=== PATIENT | female | born 1970 | race Caucasian/White ===

== ENCOUNTER 2025-03-01 08:19 | Emergency (ER) | payer BC, SELFPAY ==
--- OUTSIDE RECORDS SUMMARY | 2025-03-01 08:22 | XMS_ITS | Clinical Summary ---
Author Organization [facility] Address [address] [place] [id number] Care Team Providers Care Epic Prelude Analyst Name Role Phone Sergio Juarez Primary Care Provider [phone] Allergies Active Allergy Reactions Criticality Noted Date Comments Adhesive Tape Rash Low 10/20/2014 Redness, welts Mold 03/12/2011 CONGESTION AND SINUS INFECTIONS Nickel Blisters 10/20/2014 GUMS AROUND METAL OF CROWN RED AND RAW Penicillins Rash Low 08/21/2005 Medications diphenhydrAMINE (BENADRYL) 25 MG tablet Take 1-2 tablets (25-50 mg) by mouth every 6 hours as needed for allergies 30 tablet 7 Active finasteride (PROSCAR) 5 MG tablet 2 mg every 24 hours 9 Active cyclobenzaprine (FLEXERIL) 10 MG tablet Take 10 mg by mouth At Bedtime 0 Active Active Problems Problem Noted Date Diagnosed Date Aftercare following surgery 10/20/2014 Pelvic pain 10/17/2014 Encounter for sterilization 10/17/2014 Overview (08/24/2015): Problem list name updated by automated process. Provider to review Resolved Problems Problem Noted Date Diagnosed Date Resolved Date Lumbago 12/14/2008 04/18/2009 Lumbago 06/28/2007 08/17/2007 state, incidental 06/28/2007 0 04/18/2009 Social History Tobacco Use Types Packs/Day Years Used Date Smoking Tobacco: Never Smokeless Tobacco: Never Alcohol Use Standard Drinks/Week Comments Yes 0 (1 standard drink = 0.6 oz pur e alcohol) RARELY Comments No Sex and Gender Information Value Date Recorded Sex Assigned at Not on file Legal Sex Female 4:23 AM [employer] Gender Identity Not on file Sexual Orientation Not on file Last Filed Vital Signs Vital Sign Reading Time Taken Comments Blood Pressure 138/84 08/28/2020 1:23 PM CDT Pulse 77 08/28/2020 1:23 PM CDT Temperature 37.1 C (98.7 F) 08/28/2020 1:23 PM CDT Respiratory Rate 18 08/28/2020 1:23 PM CDT Oxygen Saturation 98% 08/28/2020 1:23 PM CDT Inhaled Oxygen Concentration - - Weight 110.9 kg (244 lb 8 oz) 08/28/2020 1:23 PM CDT Height 166.4 cm (5' 5.5) 08/28/2020 1:23 PM CDT Body Mass Index 40.07 08/28/2020 1:23 PM CDT Plan of Treatment Not on file Insurance [facility] Advance Directives For more information, please contact: [phone] * Full Code (Latest Code Status on File) Date Activated Date Inactivated Comments 10/20/2014 12:32 PM 10/21/2014 2:56 PM Care Teams Epic Prelude Analyst Relationship Specialty Start Date End Date Sergio Juarez [address] [address] PCP - General Family Practice 10/20/14
--- OUTSIDE RECORDS SUMMARY | 2025-03-01 08:22 | XMS_ITS | Data Portability ---
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 Instructed in scapular work. Reviewed program, and adjusted frequency to accomodate her busy schedule. 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 If symptom reduction is maintained, will decrease to PRN. Will recheck Jaw Functional Limitatrion Scale next week. csather Not available 10/19/2019 09:04:21 10/27/2019 10/27/2019 Improvement in this session; jaw opening increased, clicking decreased, and was abolished by the end of the session, with jaw opening to 44, which feels normal to her. Neck relaxes. She continues with IO massage and other techniques as time permits. Short term goals; 3 weeks Client to be able to bite down with 50% less pain than at evaluation Client to improve cervical ROM to Within Normal Limits Improve patient awareness of muscle guarding habits to decrease pain by 50% rice cleaning machine tender goals-6 weeks Client to not have jaw pain upon awakening in AM Client to demonstrate independence in maintaining precautions to prevent TMJ pain Client to present with at least 75% less crepitis Client to open jaw to at least 40 mm without pain, deviation or crepitis Client to have pain-free chewing with moderately hard diet 75% of the time Client to report pain level is reduced at least 75% as evidenced by functional limitation scale PLAN: Client is to be seen 1-2x/week for 4-8 weeks for instruction in jaw and neck exercises, postural exercises and body mechanics instructions, including better sleeping position, self-soft tissue mobilization avoidance of precipitating parafunctional activities, . csather Not available 10/27/2019 18:02:08 11/04/2019 11/04/2019 Patient was seen today for follow-up and insertion of a maxillary stabilization intraoral appliance. Diagnosis and contributing factors were reviewed. Questions were answered. Self-management and home exercise techniques were reviewed. Today the intraoral appliance was fit to patient comfort. Specifically, adjustments were made to balance appliance occlusion. Instructions on proper use and care were discussed/reviewed both written and verbally. I suggested that (s)he uses the appliance as a retraining tool to aid in relaxing their jaw muscles - put it in 20-30 minutes before bed time, keeping their jaw in a relaxed balanced position, simultaneously applying a heat compress on the jaw. Potential side effects were reviewed. The patient was advised to discontinue oral appliance use should they experience untoward side effects or be unable to return for follow-up care. The patient was advised to return in 3-4 weeks to reassess their progress and continue their treatment plan as previously outlined. In addition to oral appliance insertion today we review home self-care strategies as previously discussed. We discussed additional treatment options including continuing rehabilitative treatment with physical therapy. Today greater than 50% of the 25 minute visit was spent counseling and coordinating care. This may have included a review of the diagnosis, contributing factors, home self-management strategies and the limitations and expectations. Not available 11/04/2019 13:40:06 12/05/2019 12/05/2019 Today I reviewed the diagnosis, contributing factors and treatment options. I reviewed and reinforced continued use of self care and home exercises. I've encouraged daily home care use which may consist of heat and ice compresses, oral habit reduction and relaxation techniques. The intraoral appliance was adjusted to patient comfort and balanced. I encouraged Darshana to warm appliance before insertion. I've suggested that (s)he return for follow-up care in 6 months. Today greater than 50% of the 25 minute visit was spent counseling and coordinating care. This may have included a review of the diagnosis, contributing factors, home self-management strategies and the limitations and expectations. Not available 12/05/2019 14:45:54 06/04/2020 06/04/2020 Today I reviewed the diagnosis, contributing factors and treatment options. I reviewed and reinforced continued use of self care and home exercises. I've encouraged daily home care use which may consist of heat and ice compresses, oral habit reduction and relaxation techniques. The intraoral appliance was adjusted to patient comfort and balanced. Specifically, I thinned out the anterior lingual. Darshana said that it felt much better. Today a prescription for cyclobenzaprine 10 mg qhs, was provided to the patient. The risks and benefits associated with the prescribed medication was discussed with the patient today. Patient was asked to discontinue medication intake and return to clinic if significant side effects were noted from the medication. I've suggested that the patient return for follow-up care annually or PRN sooner. Today greater than 50% of the 15 minute visit was spent counseling and coordinating care. This may have included a review of the diagnosis, contributing factors, home self-management strategies and the limitations and expectations. Not available 06/04/2020 14:06:29 Plan of Treatment Reminders Order Date Submit Date Provider Last Modified By Organization Details Last Modified Time Details Appointments None recorded. Lab None recorded. Referral None recorded. Procedures None recorded. Surgeries None recorded. Imaging None recorded. Medication Orders cyclobenza marissa 10 mg tablet 2019 020 INTERFACE [id number], [address] [place], [address], 0 14:06:50 Patient Targets Encounter Date Encounter Id Patient Goals Patient Target Last Modified By Organization Details Last Modified Time open mouth without left jaw pain [email or web address] Not available 10/18/2019 13:08:36 open mouth without left jaw pain csather Not available 10/27/2019 16:13:31 Patient InstructionsNo instructions recorded. Reason for Referral None Reported. Results Created Date Observation Date Name Description Value Unit Range Abnormal Flag Note LastModifiedBy Organization Detail LastModifiedTime 10/01/20 19 10/01/2019 oral appli ance prepa ratio n* Type of appliance maxill silvestre stabil izatio n applia nce Not Available [address], [place], [address], 10/01/2019 09:31:02 09/29/20 19 XR, ortho panto gram No observ ation record ed. [email or web address] Not Available 05/2019 16:49:09 Result Notes None recorded. 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 Procedures Surgical History Date Name Laterality Status Provider Name and Address Organization Details Recorded Time 11/04/20 19 Oral appliance completed Sarahi DIAZ [facility] 11/04/2019 13:03:22 10/27/20 19 56420: Therapeutic Exercise completed [facility] 10/27/2019 16:13:31 10/27/20 19 50884: Manual Therapy completed [facility] 10/27/2019 17:57:58 10/18/20 19 75999: Therapeutic Exercise completed [facility] 10/18/2019 13:08:35 10/12/20 19 27808: Therapeutic Exercise completed [facility] 10/12/2019 10:44:54 10/12/20 71640: Manual Therapy completed [facility] 10/12/2019 11:47:17 10/10/20 26572: Therapeutic Exercise completed [facility] 10/10/2019 13:02:04 10/10/20 34004: Manual Therapy completed [facility] 10/10/2019 16:55:40 10/06/20 19 16728 PT Eval - Low Complexity completed [facility] 10/06/2019 11:22:15 10/06/20 71122: Therapeutic Exercise completed [facility] 10/06/2019 11:22:17 10/06/20 19 07372: Manual Therapy completed [facility] 10/06/2019 11:22:57 10/26/20 14 Representative Phlebotomy Services [facility] 11/04/2019 12:20:42 04/11/19 [address] [place] Teeth Extraction completed Ebony Trevino [facility] 11/04/2019 12:20:42 [facility] 11/04/2019 12:23:04 Imaging Results Imaging Date Name Status LastModified by Organization Details LastModified Time 09/29/2019 XR, orthopantogram completed [email or web address] Infor mation not available 09/29/2019 16:49:09 Procedure Notes None recorded. Medical Equipment None Reported. Allergies Allergen ID Allergen Name Allergen Category Reaction Reaction Severity Criticality Documentation Date Start Date Code Code System Note Provider Name and Address Organization Details Recorded Time 69273 nickel environme nt Not available Not available Not available 09/29/2019 77085 29 [facility]Norm [facility] 9 14:11:31 56887 Product containin g penicilli n (product) medicatio n Not available Not available Not available 09/29/2019 27408 8001 SNOMED Ernestine rouse [facility] 9 14:15:18 Medications Name Sig Start Date Stop Date Status Note LastModified by Organization Details LastModified Time cyclobenzaprine 10 mg tablet take 1 tab every day at bedtime 2019 active Not Available Not Available Not Avai lable finasteride 5 mg tablet 2 mg every day by oral route. 2018 active Not Available Not Available Not Avai lable Vitals Date Recorded Body height Body mass index (BMI) Body weight Provider Name and Address Organization Details Last Updated DateTime 11/04/2019 166.37 cm 36.1 kg/m2 02192.32 g Ebony Trevino [facility] 11/04/2019 12:20:37 Date Recorded Body height Provider Name an d Address Organization Details Last Updated DateTime 12/05/2019 166.37 cm Misael Mckenzie [facility] 12/05/2019 14:08:59 Date Recorded Body height Body temperature Heart rate Systolic blood pressure Diastolic blood pressure Provider Name and Address Organization Details Last Updated DateTime 06/04/2020 166.37 cm 97.3 [degF] 74 /min 153 mm[Hg] 85 mm[Hg] Misael Mckenzie [facility] 0 12:16:55 Social History Question Answer Notes LastModified by Organization D etails LastModified Time What Is Your Level Of Alcohol Consumption? None [email or web address] Information not available 09/29/2019 Are You Currently Employed? Yes [email or web address] Information not available 09/29/2019 Sex: Unknown Functional Status None recorded. Mental Status None recorded. Family History Relationship Description Onset Age of this Age Resolved Age Notes LastModified by Organization Details LastModified Time Father Substance abuse 17 Not available 05/2019 14:11:59 Brother Substance abuse 19 Not available 05/2019 14:11:59 Medical History Condition Response Coronary Artery Disease N Other N Gout N MRSA N Head Trauma/Injury N Glaucoma N Lung Disease N Depression N COPD N Pneumonia N Pacemaker N Obstructive Sleep Apnea Y Anxiety Disorder N Muscle, Joint, or Bone Problems N Autoimmune disease N Vision or Eye Problems N Arthritis N Acid Reflux (GERD) N Cancer N Stroke N Back Injury N High Cholesterol N Liver Disease N Organ Transplant N Rheumatoid Arthritis N Fibromyalgia N Headaches N Kidney Disease N Allergies/Hayfever Y Parkinson's Disease N Post traumatic stress disorder (PTSD) N Migraines Y Brain Tumors N Anemia N Multiple Sclerosis N Heart Attack ([place]) N Stomach Ulcers N Diabetes N Bleeding Disorder N Seizures/Epilepsy N Tuberculosis N AIDS/HIV N Dementia N Asthma N Substance Abuse N Vertigo N Sleep Disorder N Hepatitis N Heart Disease N Neuropathy N Pulmonary Embolism N Hypertension N Osteoporosis N Gynecological HistoryNo gynecological history recorded. Obstetrics History GPAL:G 0 P 0 0 0 0 Immunizations Vaccine Type Date Status Note Provider Nam e and Address Organization Details Recorded Time Influenza, split virus, quadrivalent, preservative 9 completed JOE Rosario - [facility] 12/05/2019 14:09:52 Past Encounters Encounter ID Performer Location Encounter Start Date Encounter Closed Date Diagnosis/Indication Diagnosis SNOMED-CT Code Diagnosis ICD10 Code Diagnosis Note [id number] Sarahi Marisol [address] [place] [address] 09/29/2019 13:52:31 09/29/2019 15:03:14 Referred otalgia 00932883 H92.09 Tension-type headache 39 6854688 G44.209 Arthralgia of temporomandibular joint 78332661 M26.622 Articular disc disorder of temporomandibular joint 04500400 M26.631 left disc displaceme nt with reduction Myofascial pain 42870401 9 M79.11 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 [id number] Yomi Pearl garza [address] [facility] [place] [id number] 10/06/2019 09:16:22 10/06/2019 10:31:31 Articular disc disorder of temporomandibular joint 02213285 M26.631 left disc displaceme nt with reduction Arthralgia of temporomandibular joint 44537212 M26.622 Referred otalgia 2936983 8 H92.09 Tension-type headache 39 0769311 G44.209 [id number] Yomi Bunch [address] [address] [place] [id number] 10/10/2019 12:44:32 10/10/2019 17:56:38 Articular disc disorder of temporomandibular joint 58754042 M26.631 left disc displaceme nt with reduction Arthralgia of temporomandibular joint 14138860 M26.622 Referred otalgia 1422544 8 H92.09 Tension-type headache 39 9008422 G44.209 [id number] Yomi Bunch [address] [id number] 10/12/2019 10:43:22 10/12/2019 11:55:44 Articular disc disorder of temporomandibular joint 22873739 M26.631 left disc displaceme nt with reduction Arthralgia of temporomandibular joint 66627424 M26.622 Referred otalgia 6724423 8 H92.09 Tension-type headache 39 9925923 G44.209 Myofascial pain 97833119 9 M79.10 [id number] Yomi Bunch [address] [place] [id number] 10/18/2019 13:07:05 10/18/2019 14:13:19 Articular disc disorder of temporomandibular joint 61364151 M26.631 left disc displaceme nt with reduction Arthralgia of temporomandibular joint 31396219 M26.622 Referred otalgia 5364835 8 H92.09 Tension-type headache 39 7532422 G44.209 Myofascial pain 53536861 9 M79.10 [id number] Yomi Kang Tammi garza [address] [place] [id number] 10/27/2019 16:09:04 10/27/2019 16:37:21 Articular disc disorder of temporomandibular joint 25389784 M26.631 left disc displaceme nt with reduction Arthralgia of temporomandibular joint 07199403 M26.622 Referred otalgia 3131742 8 H92.09 Tension-type headache 39 2194496 G44.209 Myofascial pain 01946366 9 M79.10 [id number] Sarahi Bunch [address] [id number] 11/04/2019 12:05:33 11/04/2019 12:57:57 Myofascial pain 084832550 M79.11 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 Articular disc disorder of temporomandibular joint 94631653 M26.631 left disc displaceme nt with reduction Arthralgia of temporomandibular joint 18521162 M26.622 Tension-type headache 39 5802285 G44.209 Referred otalgia 5132229 8 H92.09 [id number] Sarahi Bunch [address] [place] [id number] 12/05/2019 14:04:09 12/05/2019 14:57:40 Myofascial pain 246531427 M79.11 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 Articular disc disorder of temporomandibular joint 42592098 M26.631 left disc displaceme nt with reduction Arthralgia of temporomandibular joint 30720761 M26.622 resoved [id number] Sarahi Bunch [address] [place] [id number] 06/04/2020 12:09:43 06/04/2020 13:32:48 Myofascial pain 735292462 M79.11 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 Articular disc disorder of temporomandibular joint 62594337 M26.631 left disc displaceme nt with reduction Arthralgia of temporomandibular joint 12962188 M26.622 resoved Referred otalgia 0032866 8 H92.09 Tension-type headache 39 3111412 G44.209 Health Concerns Section Related Observation LastModified by Organization Detai ls LastModified Time None Recorded Concern Status LastModified by Organization Details LastModified Time None Recorded Advance Directives Directive None Recorded Payers Encounter Date Sequence Insurance Name Policy Number Policy Huff Covered Member ID Huff Member ID Guarantor Name 10/18/2019 1 [facility] You Elenanivan [id number] Darshanamelodie Ulloa 10/27/2019 1 [facility] You Majano Ginkel [id number] Darshana Van Ginkel 11/04/2019 1 [facility] You Majano Ginkel [id number] Darshana Melecio Ginkel 12/05/2019 1 [facility] You Elenankel [id number] Darshana Majano Ginkel 06/04/2020 1 [facility] You Elenankel [id number] Darshana Elenakhurramivan Notes Date Note Type Note Provider Name and Address Organization Details Recorded Time 10/18/2019 text/html Darshana reports s he has been doing exercises a bit more, but still is very hectic with her life and she doesn't do them as much as she would like. She can do exercises 5-10 minutes a day. She still has left jaw pain not as severe as before.. She yawns with difficulty. She currently wears a clear retainer on the maxillary during the nighttime. She has been opening her mouth farther. Stress will produce headache but also if she does not sleep much JOE Roberts - [facility] 10/19/2019 09:04:31 10/27/2019 text/html Darshana reports s he has been doing exercises 5 minutes peer day bit more, but still is very hectic with her life and she doesn't do them as much as she would like. She still has left jaw pain not as severe as before.. She yawns with difficulty. She currently wears a clear retainer on the maxillary during the nighttime. JOE Roberts - [facility] 10/27/2019 18:02:24 11/04/2019 text/html Jaw painReported bypatient.Onset:mitzi greene 3 month(s) ago Location:left; TMJ Quality:sore; sharp (upon opening wide) Severity:mild; pain level 4/10; radiating to ear (left) Duration and frequencyconstant; worsening Context:clenching; stress Aggravating/contribu tion factors:stress; clenching the teeth; yawning; wide mouth opening; chewing; crunchy foods; chewy foods Alleviating Factors:NSAIDs (aleve); Wears an invisaguard retainer nightly Associated Symptoms:jaw clicking left;jaw popping left;headaches Prior Tests:[place] piano sounding board matcher for a possible pano Prior Treatment:NSAID trial; nightguard (invisaguard) Prior opiniondentist Patient concernsDarshana is concerned with the jaw pain and soreness in her jaw muscle she is having. She feels a lump in her jaw on the left side. Symptoms statusworse Patient presents today for insertion of a {{mandibular stabilization maxill silvestre stabilization* repos itioning mandibular advancement}} oral appliance. They note {{no changes in* improved worseni ng}} symptoms which along with prior data was reviewed, updated and documented in the patient history of present illness. (S)he describes {{compliance* partia l compliance non-compl iance}} with home self care as previously recommended. Darshana states her pain goes up and down. She is taking a break from p/t because of the holidays. Her children are causing her a lot of stress right now, so she may also wear the splint at times during the day. JOE Arredondo - [facility] 11/04/2019 13:40:54 12/05/2019 text/html Jaw painReported bypatient.Onset:mitzi greene 3 month(s) ago Location:left; TMJ Quality:sore; sharp (upon opening wide) Severity:mild; pain level 4/10; radiating to ear (left) Duration and frequencyconstant; worsening Context:clenching; stress Aggravating/contribu tion factors:stress; clenching the teeth; yawning; wide mouth opening; chewing; crunchy foods; chewy foods Alleviating Factors:NSAIDs (aleve); Wears an invisaguard retainer nightly Associated Symptoms:jaw clicking left;jaw popping left;headaches Prior Tests:[place] piano sounding board matcher for a possible pano Prior Treatment:NSAID trial; nightguard (invisaguard) Prior opiniondentist Patient concernsDarshana is concerned with the jaw pain and soreness in her jaw muscle she is having. She feels a lump in her jaw on the left side. Symptoms statusworse Patient presents today for follow-up. They report jaw symptoms which are {{improved* worsened unchanged resolved} } since the previous visit. Symptoms and pertinent information along with prior data was reviewed, updated and documented in the patient history of present illness. Patient rates the pain intensity as {{0* 1 2 3 4 5 6 7 8 9 10}} on a scale of 0 to 10. Patient is {{engaged in* not engaged in partially engaged in completed discont inued}} active treatment at this time. Darshana reports that she is very pleased with her treatment. Symptoms are at least 70% better. She still gets tightness in her muscles but no pain. She has been wearing her appliance nightly. She has finished treatment with p/t. Sarahi rouse [place] - [facility] 12/05/2019 14:46:37 06/04/2020 text/html Jaw painReported bypatient.Onset:star ramona 3 month(s) ago Location:left; TMJ Quality:sore; sharp (upon opening wide) Severity:mild; pain level 4/10; radiating to ear (left) Duration and frequencyconstant; worsening Context:clenching; stress Aggravating/contribu tion factors:stress; clenching the teeth; yawning; wide mouth opening; chewing; crunchy foods; chewy foods Alleviating Factors:NSAIDs (aleve); Wears an invisaguard retainer nightly Associated Symptoms:jaw clicking left;jaw popping left;headaches Prior Tests:[place] piano sounding board matcher for a possible pano Prior Treatment:NSAID trial; nightguard (invisaguard) Prior opiniondentist Patient concernsDarshana is concerned with the jaw pain and soreness in her jaw muscle she is having. She feels a lump in her jaw on the left side. Symptoms statusworse Patient presents today for follow-up. They report jaw symptoms which are {{improved* worsened unchanged resolved} } since the previous visit. Symptoms and pertinent information along with prior data was reviewed, updated and documented in the patient history of present illness. Patient rates the pain intensity as {{0* 1 2 3 4 5 6 7 8 9 10}} on a scale of 0 to 10. Patient is {{engaged in not engaged in partially engaged in* completed discon tinued}} active treatment at this time. Darshana reports that overall her symptoms seem stable. She still feels like her jaw muscles are very tight, but she is not having any pain. She is getting about 1 migraine/week. She is wearing her splint a few days a week and alternating with her clear retainer because she feels as if the splint is too thick and it is causing her to gag. She would like a refill on her cyclobenzaprine. JOE Arredondo - [facility] 06/04/2020 14:06:50 OBGyn Episode No OBEpisode recorded.
--- OUTSIDE RECORDS SUMMARY | 2025-03-01 08:22 | XMS_ITS | Clinical Summary ---
Author Organization [facility] Address [address], [place] [address] Care Team Providers Care Electrical And Instrumentation Mechanic Name Role Phone Found, No Pcp MD Primary Care Provider Unavailab le Source Comments You are receiving this document as you are listed as the primary care provider,follow-up provider, or the patient has been referred to you for consultation.This is in compliance with the Medicare and[facility] E[facility] Incentive Program,which states Providers who transition their patient to another setting of careor provider of care or refers their patient to another provider of care shouldprovide summary care record for each transition of care or referral. [employer] Allergies Active Allergy Reactions Criticality Noted Date Comments Penicillins Hives 07/26/2014 Medications finasteride (PROSCAR) 5 MG tablet Take 5 mg by mouth daily. 03/04/2021 Active Active Problems Problem Noted Date Diagnosed Date Obesity 03/22/2021 Mild obstructive sleep apnea 07/26/2014 Overview (12/23/2022): Setting: AutoPAP 12-16 cmH20 Supplied by: [facility]/nasal pillow PSG done: 08/03/2009 AHI 8.9 (HTN) RDI 17.4 Lowest O2 Sat: 83% Social History Tobacco Use Types Packs/Day Years Used Date Smoking Tobacco: Never Smokeless Tobacco: Never Alcohol Use Standard Drinks/Week Comments No 0 (1 standard drink = 0.6 oz pur e alcohol) Rare Comments Unknown Sex and Gender Information Value Date Recorded Sex Assigned at Not on file Legal Sex Female 6:54 AM CDT Gender Identity Not on file Sexual Orientation Not on file Last Filed Vital Signs Vital Sign Reading Time Taken Comments Blood Pressure 141/94 03/22/2021 1:00 PM CDT Pulse 89 12/23/2022 2:44 PM STAFF THERAPIST Temperature - - Respiratory Rate - - Oxygen Saturation 95% 12/23/2022 2:44 PM STAFF THERAPIST Inhaled Oxygen Concentration - - Weight 116.4 kg (256 lb 9.6 oz) 12/23/2022 2:44 PM STAFF THERAPIST Height 167.6 cm (5' 6) 12/23/2022 2:44 PM STAFF THERAPIST Body Mass Index 41.42 12/23/2022 2:44 PM STAFF THERAPIST Plan of Treatment Health Maintenance Due Date Last Done Comments Cervical Cancer Screening Due 1968 Colon Cancer Screening Plan Due 1968 Hep C Screening (Preventive Services) 1968 Mammogram 1968 HIV Screening (Preventive Services) 1984 Adult Preventive Visit 1986 HepB (1) 1987 DTaP/Tdap/Td (1 - Tdap) 04/24/2006 04/23/2006 Cholesterol 2013 Pneumococcal 50+ Yrs (1 of 1 - PCV) 2018 Zoster/Shingles (1 of 2) 2018 COVID-19 Vaccine (1 - 2023- season) 2024 Influenza (#1) 2024 11/11/2019, 11/23, 08/18/2011, Additional history exists HepA Aged Out No longer eligi ble based on patient's age to complete this topic Hib Aged Out No longer eligi ble based on patient's age to complete this topic IPV (Polio) Aged Out No longer eligi ble based on patient's age to complete this topic MCV4 Aged Out No longer eligi ble based on patient's age to complete this topic Meningococcal B Aged Out No longer el igible based on patient's age to complete this topic Insurance [facility] BLUE LINK Care Teams Electrical And Instrumentation Mechanic Relationship Specialty Start Date End Date Found, No Pcp, [address] [place] [address] PCP - General 05/31/14
[2025-03-01 08:26] VITALS: BP 131/74; PULSE 90; RESP 20; TEMP 37.3; O2SAT 92; BMI 36.9
--- NOTE | 2025-03-01 08:45 | CRLHL7_ITS ---
For Patients: As a result of the Cures Act, medical imaging exams and procedure reports are released immediately into your electronic medical record. You may view this report before your referring provider. If you have questions, please contact your health care provider. INDICATION: Abdominal pain lower right side. TECHNIQUE: CT abdomen and pelvis acquired with 111 cc of Isovue 370 IV contrast. COMPARISON: None. FINDINGS: Lower chest: Mild bibasilar scarring and atelectasis. No pleural or pericardial effusions. Liver: Unremarkable. Spleen: Unremarkable. Pancreas: Unremarkable. Gallbladder and bile ducts: No calcified stones or biliary ductal dilatation. Kidneys: Unremarkable. Adrenal glands: Postoperative change about the right adrenal. Adrenal glands otherwise unremarkable. GI tract: Colonic diverticulosis with circumferential thickening and pericolonic stranding of the sigmoid colon. No evidence of perforation or abscess. No bowel obstruction. No free fluid. Prior appendectomy. Lymph nodes: No pathologic lymphadenopathy. Vascular structures: Unremarkable. Pelvic Organs: Absent uterus. Adnexal regions and bladder as imaged is unremarkable. Bones: No acute or suspicious osseous abnormality. Mild degenerative changes spine and pelvis. IMPRESSION: Acute sigmoid diverticulitis. No complicating features evident. Dictated by Jairo Kelly MD @ 03/01/2025 9:36:39 AM Please note that all CT scans at this facility use dose modulation, iterative reconstruction, and/or weight-based dosing when appropriate to reduce radiation dose to as low as reasonably achievable. Dictated by: Jairo Kelly MD @ 03/01/2025 09:37:05 (Electronically Signed)
--- NOTE | 2025-03-01 08:47 | CRLHL7_ITS ---
For Patients: As a result of the Century Cures Act, medical imaging exams and procedure reports are released immediately into your electronic medical record. You may view this report before your referring provider. If you have questions, please contact your health care provider. Indication: Right upper quadrant abdomen pain TECHNIQUE: Ultrasound abdomen limited. Sonographic images of the right upper quadrant were obtained using ahmadi-scale and color Doppler images. Comparison: None FINDINGS: Gallbladder: No stones or sludge. Normal wall thickness. No pericholecystic fluid. Common bile duct: 2 mm. Impression: Unremarkable right upper quadrant ultrasound. Dictated by Kvng Maynard MD @ 03/01/2025 10:05:42 AM (Electronically Signed)
--- NOTE | 2025-03-01 08:48 | ED_ITS ---
HPI - General Adult General Chief complaint: Abdominal Pain Stated complaint: severe abdominal pain Time Seen by Provider: 03/01/25 08:22 History of Present Illness HPI narrative: Patient is a 54 year white female who has for 2 days had night sweats some chills she has had right abdominal pain has been diffuse but primarily her right upper quadrant. She has had an appendectomy in the past she still has her gallbladder. She has not had any cardiac issues. She has a history of sleep apnea and alopecia. The patient is on finasteride and minoxidil. The patient also is allergic to penicillin and nickel. The patient denies change in bowel or bladder, denies scleral icterus. Family history of gallbladder disease. She has not had any history of reflux or vomiting but has felt nauseated and has had abdominal pain she had a brief episode of diarrhea. Related Data Home Medications ?Medication ?Instructions ?Recorded ?Confirmed minoxidil 2.5 mg tablet 1.25 mg PO DAILY 09/28/24 03/01/25 Previous Rx's ?Medication ?Instructions ?Recorded finasteride 5 mg tablet 5 mg PO QDAY #30 tabs 06/24/22 oxycodone-acetaminophen 5 mg-325 1 tab PO Q6H PRN pain #14 tabs 03/01/25 mg tablet (Percocet) Allergies Allergy/AdvReac Type Severity Reaction Status Date / Time penicillin G Allergy Intermediate all over Verified 03/01/25 09:17 rash nickel Allergy Unknown Verified 03/01/25 09:17 Review of Systems Status of ROS: Reports: 6 or more systems reviewed and unremarkable except as noted in History and below [facility] Medical History Drug allergy (10/28/12) ?Z88.9 - Allergy status to unspecified drugs, medicaments and biological substances (ICD-10) Alopecia ?L65.9 - Nonscarring hair loss, unspecified (ICD-10) Surgical History History of laser assisted in situ keratomileusis ?Z98.890 - Other specified postprocedural states (ICD-10) Social History Smoking Status: Never smoker How often do you have a drink containing alcohol: never AUDIT-C Alcohol total score: 0 Non-prescribed substance use: denies use Exam Narrative: Exam Narrative: Objective: The patient's temp is 99.1?, she is in qcny-li-llahmusq distress and discomfort she is alert orient x3 very pleasant HEENT is unremarkable no scleral icterus Pulse regular Heart regular Abdomen patient has elevated BMI at 36.9 She has some epigastric and right upper quadrant tenderness to palpation some mild voluntary guarding, bowel sounds are normoactive she has no right lower quadrant pain or diffuse abdominal pain but does feel little bit of pain in her left lateral abdomen as well. No palpable masses noted Extremities normal Neurologic nonfocal Const: Vital Signs, click to edit/add: Vital Signs - 24 hr 03/01/25 08:26 03/01/25 09:06 Temperature 99.1 F Pulse Rate [Pulse Oximeter] 90 Respiratory Rate 20 Blood Pressure [Le ft Upper Arm] 131/74 Pulse Oximetry 92 94 Oxygen Delivery Me thod Room Air Course Vital Signs Vital signs: Initial Vital Signs Temperature 99.1 F 03/01/25 08:26 Temperature Source Temporal Artery Scan 03/01/25 08:26 Pulse Rate 90 03/01/25 08:26 Respiratory Rate 20 03/01/25 08:26 Blood Pressure 131/74 03/01/25 08:26 Blood Pressure Mean 93 03/01/25 08:26 Blood Pressure Position Supine 03/01/25 08:26 Pulse Oximetry 92 03/01/25 08:26 Oxygen Delivery Method Room Air 03/01/25 08:26 Vital Signs Temperature 99.1 F 03/01/25 08:26 Pulse Rate 90 03/01/25 08:26 Respiratory Rate 20 03/01/25 08:26 Blood Pressure 131/74 03/01/25 08:26 Pulse Oximetry 92 03/01/25 08:26 Oxygen Delivery Method Room Air 03/01/25 08:26 Temperature 99.1 F 03/01/25 08:26 Pulse Rate 90 03/01/25 08:26 Respiratory Rate 20 03/01/25 08:26 Blood Pressure 131/74 03/01/25 08:26 Pulse Oximetry 94 03/01/25 09:06 Oxygen Delivery Method Room Air 03/01/25 08:26 Medications Administered Medications: Discontinued Medications Generic Name Dose Route Start Last Admin Trade Name Freq PRN Reason Stop Dose Admin Sodium Chloride 1,000 mls @ 6,000 mls/hr 03/01/25 08:45 03/01/25 11:10 0.9 % Sodium Chloride 1000 Ml IV 03/01/25 08:54 Infused .Q10M BRIGIDO Infusion Metronidazole 500 mg in 100 mls @ 100 mls/hr 03/01/25 10:17 03/01/25 11:29 Metronidazole IVPB 03/01/25 11:16 Not Given ONCE ONE Morphine Sulfate 4 mg 03/01/25 08:45 03/01/25 09:34 Morphine 4 Mg/Ml Inj IVP 03/01/25 08:46 4 mg ONCE ONE Administration Ondansetron HCl 4 mg 03/01/25 08:45 03/01/25 09:37 Ondansetron 2 Mg/Ml Inj IVP 03/01/25 08:46 4 mg ONCE ONE Administration Oxycodone/Acetaminophen 2 tab 03/01/25 10:07 03/01/25 10:18 Oxycodone/Apap 5-325 Tablet PO 03/01/25 10:08 2 tab ONCE ONE Administration Trimethoprim/Sulfamethoxazole 1 tab 03/01/25 10:15 03/01/25 11:30 Sulfa/Trimethoprim 800/160 1 Tab PO 03/01/25 10:16 Not Given ONCE ONE Medical Decision Making MDM Narrative Medical decision making narrative: [age] year white female with 2 day history of fever chills night sweats, abdominal pain, right upper quadrant pain to palpation. Rule out cholelithi asis, acute cholecystitis. Would also recommend a CT scan to rule out diverticulitis or other intra-abdominal pathology. Patient will get IV fluid, IV pain control IV Zofran, laboratory studies, blood cultures, CRP, surgical consult as needed. Disposition pending findings above. She was comfortable assessment and plan. Addendum 11:10 a.m. the patient is concerned about antibiotic use for her diverticulitis. She would prefer to just try pain medicine and home. I think that is reasonable will prescribe some Percocet for her cautiously and uses sparingly, light diet light activity and recheck of worsening changes or concerns. Again patient understands the risks of untreated potential infection. Is hesitant to use antibiotics. And I have offered her some Flagyl and Septra and she declined this as mention Lab Data Labs: Lab Results 03/01/25 Range/Units 09:00 WBC 11.46 H (4.50-11.00) K/uL RBC 4.57 (4.00-5.20) m/uL Hgb 13.3 (12.0-16.0) gm/dL Hct 39.4 (33.0-51.0) % MCV 86 (80-100) fL MCH 29 (26-34) pg MCHC 34 (32-36) gm/dL RDW Coeff of Brian 13.0 (11.5-15.5) % Plt Count 184 (140-440) K/uL Neut % (Auto) 80.1 H (42.0-72.0) % Lymph % (Auto) 10.9 L (20-44) % [place] % (Auto) 7.7 (0.0-11.0) % Eos % (Auto) 0.9 (0.0-7.0) % Baso % (Auto) 0.2 (0.0-3.0) % Neut # (Auto) 9.20 H (1.7-7.0) K/uL Lymph # (Auto) 1.20 (0.90-2.90) K/uL [place] # (Auto) 0.90 (0.00-0.90) K/UL Eos # (Auto) 0.10 (0.00-0.50) K/uL Baso # (Auto) 0.00 (0.00-0.30) K/uL Abs Immat Gran (auto) 0.00 (0.00-0.30) K/uL Imm/Tot Granulo (auto) 0.2 % Diff Slide Review Acceptable Review (Acceptable) Sodium 138 (135-149) mmol/L Potassium 3.7 (3.6-5.1) mmol/L Chloride 102 (96-114) mmol/L Carbon Dioxide 24 (20-32) mmol/L Anion Gap 12 (7-15) mEq/L BUN 9 (7-30) mg/dL Creatinine 0.7 (0.5-1.5) mg/dL Estimated Creat Clear 84.01 Estimated GFR 101 ml/min Glucose 117 H (60-115) mg/dL Lactate 2.8 H (0.5-1.9) mmol/L Calcium 8.4 (8.4-10.6) mg/dL Total Bilirubin 0.7 (0.1-1.5) mg/dL Direct Bilirubin 0.2 (0.0-0.5) mg/dL AST 35 (12-35) U/L ALT 48 H (4-35) U/L Alkaline Phosphatase 130 (40-150) U/L C-Reactive Protein 2.3 H (0.5-1.0) mg/dL Total Protein 7.3 (6.0-8.3) g/dL Albumin 4.3 (3.3-5.0) g/dL Amylase 57 (18-89) U/L Lipase 82 (23-300) U/L Discharge Plan Discharge Clinical Impression: Abdominal pain, Diverticulitis of sigmoid colon Patient Disposition: Home w/ Parent or Adult Condition: Improved Instructions: Abdominal Pain (ED) Additional Instructions: Pain medicine as needed, uses sparingly as you have sleep apnea. Can return if increasing pain, problems, fever, concerns. Follow-up with your regular doctor as needed Activity Level: Light activity Discharge Diet: Full Liquid Diet Detail: Advanced diet as tolerated over the next 24 hours Prescriptions: New oxycodone-acetaminophen [Percocet] 5-325 mg tablet 1 tab PO Q6H PRN (Reason: pain) Qty: 14 0RF No Action minoxidil 2.5 mg tablet 1.25 mg PO DAILY finasteride 5 mg tablet 5 mg PO QDAY Qty: 30 9RF Follow Up/Referrals: Provider,Not a Local [Primary Care Provider] - Stand Alone Forms: [employer] Info Instructions
[2025-03-01 09:06] VITALS: O2SAT 94
[2025-03-01 09:11] LABS: Lactate* 2.8 mmol/L (0.5-1.9)
[2025-03-01 09:21] LABS: Basophils Percent Auto 0.2 % (0.0-3.0); Eosinophils Percent Auto 0.9 % (0.0-7.0); Hematocrit 39.4 % (33.0-51.0); Hemoglobin* 13.3 gm/dL (12.0-16.0); Immature Granulocytes Pct Auto 0.2 %; Lymphocytes Percent Auto 10.9 % (20-44); Mean Corpuscular HGB Conc 34 gm/dL (32-36); Mean Corpuscular Hemoglobin 29 pg (26-34); Mean Corpuscular Volume 86 fL (80-100); Monocytes Percent Auto 7.7 % (0.0-11.0); Neutrophils Percent Auto 80.1 % (42.0-72.0); Platelet Count* 184 K/uL (140-440); Red Blood Count 4.57 m/uL (4.00-5.20); White Blood Count* 11.46 K/uL (4.50-11.00)
[2025-03-01 09:25] LABS: Chloride* 102 mmol/L (96-114)
[2025-03-01 09:26] LABS: Albumin* 4.3 g/dL (3.3-5.0); Potassium* 3.7 mmol/L (3.6-5.1); Sodium* 138 mmol/L (135-149)
[2025-03-01 09:28] LABS: Amylase* 57 U/L (18-89)
[2025-03-01 09:29] LABS: Alanine Aminotransferase* 48 U/L (4-35); Alkaline Phosphatase* 130 U/L (40-150); Anion Gap 12 mEq/L (7-15); Aspartate Amino Transferase* 35 U/L (12-35); Bilirubin Direct* 0.2 mg/dL (0.0-0.5); Bilirubin Total* 0.7 mg/dL (0.1-1.5); Blood Urea Nitrogen* 9 mg/dL (7-30); Calcium* 8.4 mg/dL (8.4-10.6); Carbon Dioxide* 24 mmol/L (20-32); Creatinine* 0.7 mg/dL (0.5-1.5); Est. Creatinine Clearance* 84.01; Estimated Glomerular Filt Rate 101 ml/min; Glucose* 117 mg/dL (60-115); Lipase* 82 U/L (23-300); Total Protein* 7.3 g/dL (6.0-8.3)
[2025-03-01] MEDS: 0.9 % SODIUM CHLORIDE 1000 ml 1,000 ML 6000 ML IV (09:29)
[2025-03-01 09:32] LABS: C Reactive Protein* 2.3 mg/dL (0.5-1.0)
[2025-03-01] MEDS: MORPHINE 4 MG/ML INJ IVP (09:34)
[2025-03-01] MEDS: ONDANSETRON 2 MG/ML inj 4 MG IVP (09:37)
[2025-03-01 09:55] LABS: Slide Review Reflex Yes
--- OUTSIDE RECORDS SUMMARY | 2025-03-01 10:01 | XMS_ITS | Clinical Summary ---
Author Organization [email or web address] Address [address], [place] [address] Care Team Providers Care Sole Polisher Name Role Phone Found, No Pcp MD Primary Care Provider Unavailab le Source Comments You are receiving this document as you are listed as the primary care provider,follow-up provider, or the patient has been referred to you for consultation.This is in compliance with the Medicare and[facility] Incentive [facility],which states Providers who transition their patient to another setting of careor provider of care or refers their patient to another provider of care shouldprovide summary care record for each transition of care or referral. [employer] Allergies Active Allergy Reactions Criticality Noted Date [...] PM CDT Pulse 89 12/23/2022 2:44 PM GAS PLUMBING INSPECTOR Temperature - - Respiratory Rate - - Oxygen Saturation 95% 12/23/2022 2:44 PM GAS PLUMBING INSPECTOR Inhaled Oxygen Concentration - - Weight 116.4 kg (256 lb 9.6 oz) 12/23/2022 2:44 PM GAS PLUMBING INSPECTOR Height 167.6 cm (5' 6) 12/23/2022 2:44 PM GAS PLUMBING INSPECTOR Body Mass Index 41.42 12/23/2022 2:44 PM GAS PLUMBING INSPECTOR Plan of Treatment Health Maintenance Due Date [...] patient's age to complete this topic Insurance [facility] BLUE LINK Care Teams Sole Polisher Relationship Specialty Start Date End Date Found, No Pcp, [address] [place] [address] PCP - General 05/31/14
--- OUTSIDE RECORDS SUMMARY | 2025-03-01 10:01 | XMS_ITS | Clinical Summary ---
Author Organization [facility] Address [address] [place] [id number] Care Team Providers Care Remote Sensing Engineer Name Role Phone Sergio Juarez Primary Care Provider [phone] Allergies Active Allergy Reactions Criticality Noted Date [...] on file Legal Sex Female 4:23 AM MC KAY STITCHER Gender Identity Not on file Sexual Orientation [...] Plan of Treatment Not on file Insurance [facility] Advance Directives For more information, please contact: [phone] * Full Code (Latest Code Status on File) Date Activated Date Inactivated Comments 10/20/2014 12:32 PM 10/21/2014 2:56 PM Care Teams Remote Sensing Engineer Relationship Specialty Start Date End Date Sergio Juarez [address] [address] PCP - General Family Practice 10/20/14
[2025-03-01 10:07] LABS: Slide Review Acceptable Review (Acceptable)
[2025-03-01] MEDS: OxyCODONE/APAP 5-325 TABLET 2 TAB PO (10:18)
--- NOTE | 2025-03-01 11:02 | PC.NURSE ---
Patient refused Flagyl and Bactrim as they have black label warnings. Patient wants to speak to MD. MD was notified of this.
== END 2025-03-01 11:28 | disposition home or self-care (01) ==
PROVIDERS: Emergency Provider Family Medicine
DX: K57.30 Diverticulosis of large intestine without perforation or abscess without bleeding (principal)
CPT/HCPCS: 36415; 74177; 76705; 80048; 80076; 82150; 83605; 83690; 85025; 86140; 87040; 94761; 96374; 96375; 99284; 99285; A9270; J2270; J2405; J7030; Q9967